=== PATIENT | female | born 1990 | race Caucasian/White ===

== ENCOUNTER 2017-04-26 16:42 | Emergency (ER) | payer BC ==
[~2017-04-26] VITALS: Ht 160 cm; Wt 81.5 kg
[~2017-04-26 16:42] MED LIST: DICL75 PO; HYDR-3129 PO; METH750T2 PO
[2017-04-26 16:43] VITALS: BP 128/81; PULSE 88; RESP 18; TEMP 98.2; O2SAT 99
--- NOTE | 2017-04-26 18:36 | PD ---
HPI Chief Complaint: Related Problem Time Seen by Provider: 17:35 Travel History International Travel<30 days: No Contact w/Intl Traveler<30days: No Traveled to known affect area: No History of Present Illness HPI 26-year-old female 1 para 0 last menstruation 8 weeks prior bleed to be 6 weeks arrives due to vaginal bleeding today. She reports one pad of bright red blood. She had cramping earlier has none now. No fever or vomiting. She saw her production material handler just a few days prior and a transvaginal ultrasound revealed a heart tone which was evidently normal. PFSH Past Medical History Diminished Hearing: No Immunizations Current: Yes ?: : 0 Social History Alcohol Use: No Tobacco Use: No Substance Use: No Allergies-Medications (Allergen,Severity, Reaction): Coded Allergies: No Known Allergies (Verified Adverse Reaction, Unknown, 04/26/17) Reported Meds & Prescriptions Reported Meds & Active Scripts Active No Active Prescriptions or Reported Medications Review of Systems Except as stated in HPI: all other systems reviewed are Neg General / Constitutional: No: Fever Cardiovascular: No: Chest Pain or Discomfort Respiratory: No: Cough, Shortness of Breath Gastrointestinal: No: Nausea, Vomiting, Abdominal Pain Genitourinary: Positive: Vaginal Bleeding Physical Exam Exam Limitations: Left before Exam Complete Narrative Examination deferred Data Data Last Documented VS Vital Signs Date Time Temp Pulse Resp B/P (MAP) Pulse Ox O2 Delivery O2 Flow Rate FiO2 04/26/17 16:43 98.2 88 18 128/81 (97) 99 Room Air Vital signs reviewed Orders Orders Beta Hcg (Quant/Titer) (04/26/17 18:15) Urinalysis - C+S If Indicated (04/26/17 18:15) Rhogam Only (04/26/17 18:15) Ed Urine Pregnancytest Poc (04/26/17 18:15) Complete Rh (04/26/17 18:26) Ed Discharge Order (04/26/17 18:34) MDM Medical Decision Making Medical Screen Exam Complete: Yes Emergency Medical Condition: Yes Medical Record Reviewed: Yes Differential Diagnosis IUP, UTI, ectopic , ov torsion, appendicitis, TOA, cervicitis, BV, Trichomoniasis, ov cyst, hernia, mittelschmerz, pain from menstruation Narrative Course The patient expectations were to arrive have an ultrasound and to be discharged expeditiously. We discussed the necessity of beta hCG Rh type and urinalysis. The necessity of a repeat beta for establishing the viability of the was also discussed however the patient felt to be easier just to do an ultrasound. All efforts to educate the patient extended. The patient opined different diagnoses and elected to follow up with her production material handler on Saturday. The risks of leaving here without a proper workup were discussed. The patient is 26 years old and of sounds state and competent to make decisions independently. She understands that in leaving here she has increased risk Rh mismatch in undiagnosed UTI which could lead to congenital disease and/or complication. Patient understands she can return to the ER any time. Forcing her to sign out AGAINST MEDICAL ADVICE wouldn't change her understanding of her decision to leave and would confer no advantage to her health moving forward and is therefore deferred. She reports her production material handler will see her in 2 days' time. The patient was fully dressed at the time of the initial interview and a subsequent donning of a gown would have conferred a convenient time to perform the exam however the patient's decision to leave resulted in inability to perform the exam appropriately. Diagnosis Primary Impression: Threatened miscarriage Referrals: [facility] Operator call for appointment Scripts No Active Prescriptions or Reported Meds Disposition: 01 DISCHARGE HOME Condition: Den Travis MD Apr 26, 2017 18:36
== END 2017-04-26 19:01 | disposition home or self-care (01) ==
LOC: NEPD 16:42
DX: O20.0 Threatened abortion (principal); Z3A.01 Less than 8 weeks gestation of pregnancy
CPT/HCPCS: 99281

== ENCOUNTER → 2017-04-29 | Outpatient (CLI) | payer BC | LOC: CLAB 10:43 | PROVIDERS: ATTEND Obstetrics & Gynecology | DX: O02.1 Missed abortion (principal) | CPT/HCPCS: 36415; 84702; 86900; 86901 ==